=== PATIENT | female | born 2000 | race African-American/Black ===

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

== ENCOUNTER 2019-02-22 22:46 | Emergency (ER) | payer MEDICAID, SELFPAY | END 2019-02-22 23:36 | disposition home or self-care (01) | LOC: MADERS 22:46 | DX: H61.23 Impacted cerumen, bilateral (principal) | CPT/HCPCS: 99282 ==